=== PATIENT | male | born 1980 | race Caucasian/White ===

== ENCOUNTER 2019-08-17 20:14 | Emergency (ER) | payer MEDICAID ==
[~2019-08-17] VITALS: Ht 182.9 cm; Wt 90.9 kg
[2019-08-17 20:22] VITALS: BP 139/85
[2019-08-17] MEDS ORDERED: CEPH250T PO (21:41)
[2019-08-17] MEDS ORDERED: DOXY100C77 PO (21:41)
== END 2019-08-17 21:58 | disposition home or self-care (01) ==
LOC: EDBD 20:16 → ER 20:16
DX: L03.115 Cellulitis of right lower limb (principal); F15.90 Other stimulant use, unspecified, uncomplicated; Z79.899 Other long term (current) drug therapy
CPT/HCPCS: 99283

== ENCOUNTER 2021-01-08 17:09 | Emergency (ER) | payer MEDICAID ==
[~2021-01-08] VITALS: Ht 180.3 cm; Wt 100.0 kg
[2021-01-08] MEDS ORDERED: SULF1TAB49 PO (17:54)
[2021-01-08] MEDS ORDERED: sulfamethoxazole/trimethoprim DS (800/160mg) tablet PO ONE (18:05)
[2021-01-08 19:12] VITALS: BP 131/77
== END 2021-01-08 19:13 | disposition home or self-care (01) ==
LOC: ER 17:10
DX: L08.9 Local infection of the skin and subcutaneous tissue, unspecified (principal); M79.645 Pain in left finger(s); F15.90 Other stimulant use, unspecified, uncomplicated; Z79.2 Long term (current) use of antibiotics
CPT/HCPCS: 10060; 99283